=== PATIENT | male | born 1940 | race Caucasian/White ===

== ENCOUNTER → 2020-09-06 | Outpatient (CLI) | payer OTHER ==
[~2020-09-06] MED LIST: ADULT LOW DOSE81 MG PO; COLACE 100 MG100 MG; FLONASE NASAL; HYTRIN10 MG PO; MULTIVITAMINS PO
== END ==
LOC: RAD 08:58
PROVIDERS: ATTEND Family Medicine
DX: K21.9 Gastro-esophageal reflux disease without esophagitis (principal); I77.810 Thoracic aortic ectasia; K44.9 Diaphragmatic hernia without obstruction or gangrene